=== PATIENT | female | born 2000 | race Caucasian/White ===

== ENCOUNTER → 2024-10-09 | Outpatient (CLI) | payer OTHER | LOC: M WHC 13:00 | PROVIDERS: ATTEND Advanced Practice Midwife | DX: Z34.82 Encounter for supervision of other normal pregnancy, second trimester (principal); Z3A.19 19 weeks gestation of pregnancy ==

== ENCOUNTER → 2024-11-06 | Outpatient (CLI) | payer OTHER | LOC: M PLALAB 11:03 | PROVIDERS: ATTEND Advanced Practice Midwife | DX: Z34.82 Encounter for supervision of other normal pregnancy, second trimester (principal) ==

== ENCOUNTER → 2025-01-01 | Outpatient (CLI) | payer OTHER ==
[2025-01-01 13:32] LABS: PLATELET COUNT, AUTOMATED 299 10^3/uL (150-450)
[2025-01-01 13:34] LABS: GLUCOSE CHALLENGE TEST 1 HOUR 98 MG/DL (LESS THAN 140)
[2025-01-01 14:09] LABS: HIV 1&2 SCREEN NEGATIVE (NEGATIVE)
[2025-01-01 14:17] LABS: HEPATITIS C VIRUS ABY INDEX < 0.02 INDEX (<0.8)
[2025-01-01 15:01] LABS: Trichomonas vaginalis (AMP) NOT DETECTED (NEGATIVE)
[2025-01-01 15:24] LABS: GC DNA AMPLIFICATION NEGATIVE (NEGATIVE)
== END ==
LOC: M PLALAB 10:04
PROVIDERS: ATTEND Advanced Practice Midwife
DX: Z34.82 Encounter for supervision of other normal pregnancy, second trimester (principal)

== ENCOUNTER → 2025-02-05 | Outpatient (REF) | payer OTHER | LOC: M SFHCWAGY 09:57 | PROVIDERS: ATTEND Nurse Practitioner Family | DX: O09.293 Supervision of pregnancy with other poor reproductive or obstetric history, third trimester (principal); Z3A.36 36 weeks gestation of pregnancy ==

== ENCOUNTER 2025-02-15 14:24 | Outpatient (CLI) | payer OTHER ==
[~2025-02-15] VITALS: Ht 165.1 cm; Wt 102.9 kg
[2025-02-15] MEDS ORDERED: TUMS500C PO (14:39)
[2025-02-15] MEDS ORDERED: PRENTAB9 PO (14:39)
[2025-02-15 14:42] VITALS: BP 137/91
[2025-02-15 16:44] VITALS: BP 127/83
== END 2025-02-15 17:51 | disposition home or self-care (01) ==
LOC: M LDO 14:24
PROVIDERS: ATTEND Advanced Practice Midwife
DX: O47.1 False labor at or after 37 completed weeks of gestation (principal); O26.893 Other specified pregnancy related conditions, third trimester; O99.343 Other mental disorders complicating pregnancy, third trimester; N89.8 Other specified noninflammatory disorders of vagina; F41.8 Other specified anxiety disorders; Z86.32 Personal history of gestational diabetes; Z87.59 Personal history of other complications of pregnancy, childbirth and the puerperium; Z3A.37 37 weeks gestation of pregnancy
CPT/HCPCS: 59025; G0463

== ENCOUNTER 2025-02-19 19:52 | Outpatient (CLI) | payer OTHER ==
[2025-02-19] VITALS (7 sets, daily range): BP systolic 133–142; BP diastolic 82–94
[~2025-02-19] VITALS: Ht 165.1 cm; Wt 103.7 kg
[~2025-02-19 19:52] MED LIST: PRENTAB9 PO; TUMS500C PO
[2025-02-19] MEDS ORDERED: ASPI81CH33 PO (20:13)
[2025-02-19] MEDS ORDERED: HOME MED LIST COMPLETE! XX SCH (20:15)
== END 2025-02-20 00:03 | disposition home or self-care (01) ==
LOC: M LDO 19:52
PROVIDERS: ATTEND Advanced Practice Midwife
DX: O47.1 False labor at or after 37 completed weeks of gestation (principal); O99.343 Other mental disorders complicating pregnancy, third trimester; F41.8 Other specified anxiety disorders; Z86.32 Personal history of gestational diabetes; Z88.1 Allergy status to other antibiotic agents; Z3A.38 38 weeks gestation of pregnancy
CPT/HCPCS: 59025; G0463